=== PATIENT | male | born 1990 ===

== ENCOUNTER 2021-04-23 19:03 | Emergency (ER) | payer MEDICAID ==
[~2021-04-23] VITALS: Ht 167.6 cm; Wt 131.8 kg
[2021-04-23 23:01] VITALS: BP 184/111; PULSE 92; TEMP 98
== END 2021-04-23 23:01 | disposition home or self-care (01) ==
LOC: COL.ER 19:03
DX: T38.891A Poisoning by other hormones and synthetic substitutes, accidental (unintentional), initial encounter (principal); R51.9 Headache, unspecified; G47.00 Insomnia, unspecified